=== PATIENT | male | born 1980 | race Caucasian/White ===

== ENCOUNTER 2017-09-29 07:24 | Emergency (ER) | payer OTHER ==
[~2017-09-29] VITALS: Ht 193 cm; Wt 108.9 kg
[2017-09-29] MEDS ORDERED: SYNTHROID200 MCG ORAL (07:35)
[2017-09-29] MEDS ORDERED: COLACE100 MG ORAL (07:54)
[2017-09-29] MEDS ORDERED: BACTRIM DS TAB1 EAC1 ORAL (07:54)
[2017-09-29] MEDS ORDERED: IBUPROFEN600 MG ORAL (07:54)
[2017-09-29] MEDS ORDERED: NORCO 5-325 TA1 EACH ORAL (07:54)
[2017-09-29] MEDS ORDERED: METRONIDAZOLE500 MG ORAL (07:54)
[2017-09-29 08:00] VITALS: BP 148/92
--- NOTE | 2017-09-29 08:06 | Emergency Room Report ---
History of Present Illness General Chief Complaint: General Complaint Source: Patient Present Illness HPI Patient presents in emergency department today complaining of groin pain and swelling for the last 2-3 days. The swelling noted in the right perineum area. This does not involve the scrotum. He denies any trauma to that area. Denies shaving. States the pain actually since improved by having defecation. Denies any fever nausea vomiting diarrhea or chills. Denies any history of urinary frequency. Patient has never had this before. No other complaints are noted. Symptoms noted to be moderate.No other modifying factors. No other associated signs and symptoms. No other complaints were noted. Allergies: Coded Allergies: No Known Allergies (Unverified , 09/29/17) Patient History Past Medical History: none PMH Narrative hypothyroidism Past Surgical History: none Pertinent Family History: none Social History: Reports: smoking, alcohol use Reviewed Nursing Documentation: PMH: Agreed; PSxH: Agreed Nursing Documentation-PMH Past Medical History: No History, Except For Review of Systems All Other Systems: negative except mentioned in HPI Physical Exam Vital Signs Date Time Temp Pulse Resp B/P (MAP) Pulse Ox O2 Delivery O2 Flow Rate FiO2 09/29/17 07:30 99.0 94 17 148/92 94 Room Air 99.0 Sp02 EP Interpretation: reviewed, normal General Appearance: normal inspection, well appearing, no apparent distress, alert Head: atraumatic Eyes: bilateral eye normal inspection ENT: normal ENT inspection, hearing grossly normal, normal voice Neck: normal inspection, full range of motion, supple, no bony tend Respiratory: normal inspection, lungs clear, normal breath sounds, no respiratory distress, no retraction, no wheezing Cardiovascular #1: regular rate, rhythm, no edema Gastrointestinal: normal inspection, normal bowel sounds, non tender, soft, no guarding, no hernia Genitourinary: no CVA tenderness, other - right peroneal swelling and tenderness. No evidence of discharge or fluctuance. No evidence of involvement the rectum. Musculoskeletal: normal inspection, back normal, normal range of motion Neurologic: normal inspection, alert, responsive, speech normal Psychiatric: normal inspection, judgement/insight normal, mood/affect normal Skin: normal inspection, normal color, no rash Medical Decision Making Diagnostic Impression: Primary Impression: Perineal mass in male ER Course Patient presented emergency department today complaining of a mass in the perineum. Differential considerations include abscess, cellulitis, lymphadenopathy, perirectal abscess just to name a few. Patient's exam shows a indurated and well circumcised swallowing in the right perineum. This does not involve the rectum. No evidence of hemorrhoids. No evidence of testicular swelling or other lymphadenopathy. No evidence of erythema or discharge. Given patient's presentation I felt the patient require outpatient follow-up with urology. This mass does not result will likely require biopsy and further imaging. Patient was given urology referral. Patient was advised about the importance of follow-up. Other considerations include cancer and this was also given to the patient has a differential as well. Patient was put on a trial of antibiotics Bactrim and Flagyl.Patient is advised to follow up with primary doctor in 2-3 days and return the emergency room for any worsening symptoms and as needed. Last Vital Signs Date Time Temp Pulse Resp B/P (MAP) Pulse Ox O2 Delivery O2 Flow Rate FiO2 09/29/17 07:30 99.0 94 17 148/92 94 Room Air 99.0 Status: improved Disposition: HOME, SELF-CARE Condition: Stable Scripts Docusate Sodium* (COLACE*) 100 Mg Capsule 100 MG ORAL TWICE A DAY for 10 Days, CAP Prov: ISAC NUGENT M.D. 09/29/17 Ibuprofen* (MOTRIN*) 600 Mg Tablet 600 MG ORAL Q8H PRN for For Pain, #15 TAB 0 Refills Prov: ISAC NUGENT M.D. 09/29/17 Hydrocodone Bit/Acetaminophen 5-325* (NORCO 5-325*) 1 Each Tablet 1 TAB ORAL Q6H PRN for For Pain, #10 TAB 0 Refills Prov: ISAC NUGENT M.D. 09/29/17 Metronidazole* (FLAGYL*) 500 Mg Tablet 500 MG ORAL BID for 7 Days, TAB Prov: ISAC NUGENT M.D. 09/29/17 Trimethoprim/Sulfamethoxazole 160/800* (BACTRIM DS TABLET*) 1 Each Tablet 1 TAB ORAL Q12H, #14 TAB 0 Refills Prov: ISAC NUGENT M.D. 09/29/17 Referrals: NON PHYSICIAN (PCP) Rafael Oleary M.D. Departure Forms: Return to Work Return to Work in (Days): 5 Patient Instructions: Scrotal Masses Additional Instructions: you have a swelling in your perineal (groin) area. this requires the care of a urologist. please follow up with an urologist within 1 week. return to ER if worse pain, swelling and as needed. ISAC NUGENT M.D. Sep 29, 2017 08:06
[2017-09-29 08:07] VITALS: BP 148/92
== END 2017-09-29 08:07 | disposition home or self-care (01) ==
LOC: EMR 07:50
DX: R22.2 Localized swelling, mass and lump, trunk (principal)
CPT/HCPCS: 99284